=== PATIENT | female | born 1985 | race Caucasian/White ===

== ENCOUNTER 2016-11-07 12:33 | Emergency (ER) | payer OTHER ==
--- NOTE | 2016-11-07 13:08 | ED Physician Documentation ---
General Adult - HISTORIAN Historian: patient - HPI Stated Complaint: boil Chief Complaint: General Adult Onset: days ago (3 days) Timing: still present, worse Severity: mild Further Comments: yes (scratched the area three days ago and has developed some soreness and swelling ot the area. No drainage noted.) - ROS CONST: denies: fever - PAST HX Past History: none Other History: none Surgeries/Procedures: none Allergies/Adverse Reactions: Allergies Allergy/AdvReac Type Severity Reaction Status Date / Time Sulfa (Sulfonamide Allergy Hives Verified 11/07/16 12:51 Antibiotics) Home Medications: Ambulatory Orders Medication Instructions Recorded Cephalexin [Keflex] 500 mg PO TID #30 capsule 11/07/16 - SOCIAL HX Smoking History: greater than 1 pack/day Alcohol Use: none Drug Use: none - FAMILY HX Family History: No - VITAL SIGNS Vital Signs: Vital Signs Temp Pulse Resp BP Pulse Ox 97.6 F 90 12 115/78 96 11/07/16 12:35 11/07/16 12:35 11/07/16 12:35 11/07/16 12:35 11/07/16 12:35 - REVIEWED ASSESSMENTS Nursing Assessment Reviewed: Yes Vitals Reviewed: Yes General Adult Physical Exam - PHYSICAL EXAM GENERAL APPEARANCE: no distress RESPIRATORY: no resp distress, chest non-tender, breath sounds normal. No: wheezes, rales, rhonchi CVS: reg rate & rhythm, heart sounds normal, equal pulses, no murmur, no gallop , no JVD ABDOMEN: soft, no organomegaly, normal bowel sounds, no abdominal bruit, no distension, non-tender SKIN: other (2cm area of erythema with no fluctuance to the left gluteal fold area.) NEURO: oriented X3, mood/affect nml Discharge Clincal Impression: Cellulitis Qualifiers: Site of cellulitis: buttock Qualified Code(s): L03.317 - Cellulitis of buttock Additional Instructions: Take Keflex 500mg three times a day. Try sitting in a warm bath for 20 minutes twice a day. Watch for further development of the lesion turning into an abscess. Home Medications: Ambulatory Orders Cephalexin [Keflex] 500 mg PO TID #30 capsule 11/07/16 Condition: Stable Disposition: 01 HOME, SELF-CARE Decision to Admit: NO Date of Decison to Admit: 11/07/16 Decision Time: 13:09
[2016-11-07 13:20] VITALS: BP 126/71
== END 2016-11-07 13:23 | disposition home or self-care (01) ==
LOC: ED 12:33
DX: L03.317 Cellulitis of buttock (principal); F17.210 Nicotine dependence, cigarettes, uncomplicated
CPT/HCPCS: 99283

== ENCOUNTER 2017-01-28 18:29 | Emergency (ER) | payer OTHER ==
[2017-01-28] MEDS: Lidocaine 1% 5ml(IM or SUTURE)(PAIN CLINIC) IJ ONE (18:54)
--- NOTE | 2017-01-28 19:13 | ED Physician Documentation ---
Abscess - HISTORIAN Historian: patient - HPI Chief Complaint: Abscess Onset: days ago Timing: worse Location: ed[place]-rectal Quality: painful Further Comments: yes (32 year old female patient presents with abscess on right buttock. C/O pain, reports "drainage" last night.) - ROS CONST: none CVS/RESP: none EYES/ENT: none GI/: none MS/SKIN/LYMPH: none NEURO/PSYCH: none - PAST HX Past History: none Other History: other (abscess on buttock 3 months ago) Allergies/Adverse Reactions: Allergies Allergy/AdvReac Type Severity Reaction Status Date / Time Sulfa (Sulfonamide Allergy Hives Verified 01/28/17 19:06 Antibiotics) Home Medications: Ambulatory Orders Medication Instructions Recorded NK [NK] 01/28/17 - SOCIAL HX Smoking History: cigarettes - FAMILY HX Family History: denies: none - VITAL SIGNS Vital Signs: Vital Signs Temp Pulse Resp BP Pulse Ox 98.4 F 93 H 16 117/74 97 01/28/17 18:30 01/28/17 18:30 01/28/17 18:30 01/28/17 18:30 01/28/17 18:30 - REVIEWED ASSESSMENTS Nursing Assessment Reviewed: Yes Vitals Reviewed: Yes Procedures Site: 2.5 Blade Size: 11 I & D Procedure: Chlorhexidine Progress: minimal to no drainage Patient tolerated well, dressing applied ED Results Lab/Radiology - Orders Orders: ED Orders Category Date Time Status Apply/change dressing QID Care 01/28/17 19:07 Active WOUND CULTURE Stat Lab 01/28/17 19:08 Ordered Doxycycline Monohydrate [Vibramycin] Med 01/28/17 19:07 Discontinued 100 mg PO NOW ONE HYDROcodone /APAP 5/325 [[place] 5/325] Med 01/28/17 19:09 Discontinued 2 each PO NOW ONE Lidocaine 1% 5ml(IM or SUTURE) [Xylocaine] Med 01/28/17 18:46 Discontinued 50 mg IJ NOW ONE Abscess Physical Exam - EXAM General Appearance: mild distress Skin: warm,dry Location: other (right buttock) Character: erythematous, other (abscess 2.5 cm) Symptoms: warmth, tenderness, swelling Respiratory: no resp distress, chest non-tender, breath sounds normal CVS: reg. rate & rhythm, heart sounds nml Abdomen: non-tender, no organomegaly, nml bowel sounds, no distention Neuro/Psych: oriented x3, mood/affect nml Discharge Clincal Impression: Abscess of buttock, right Cellulitis Qualifiers: Site of cellulitis: buttock Qualified Code(s): L03.317 - Cellulitis of buttock Referrals: Primary Doctor,No [Primary Care Provider] - 2 Days Additional Instructions: Clean the wound twice a day with hibiclens and rinse with water Apply thin coat of antibiotic ointment after cleaning the wound. Cover with non-adherent bandage if able. Expect drainage for the next 2-3 days. supervisor tellers your antibiotic at [facility] and start it in the morning. Tylenol or ibuprofen as needed for discomfort. Warm sitz bath daily - add 3-4 Tablespoons of hibiclens to the bath water Home Medications: Ambulatory Orders NK [NK] 01/28/17 Condition: Stable Disposition: 01 HOME, SELF-CARE Decision to Admit: NO Decision Time: 19:13
[2017-01-28] MEDS: DOXYCYCLINE MONOHYDRATE 100 MG CAPSULE PO ONE (19:15)
[2017-01-28] MEDS: HYDROcodone /APAP 5/325 1 EACH TABLET PO ONE (19:15)
[2017-01-28 21:55] VITALS: BP 121/71
== END 2017-01-28 19:29 | disposition home or self-care (01) ==
LOC: ED 18:29
DX: L02.31 Cutaneous abscess of buttock (principal); L03.317 Cellulitis of buttock
CPT/HCPCS: 10060; 87070; 87186; 99283; A9270-GY